=== PATIENT | female | born 1995 | race Caucasian/White ===

== ENCOUNTER 2022-03-10 15:57 | Emergency (ER) | payer OTHER ==
[2022-03-10 16:29] LABS: HEMOGLOBIN 14.4 gm/dl (12.3-15.3); RED BLOOD COUNT 4.69 M/UL (4.00-5.10)
[2022-03-10 16:49] LABS: BUN/CREATININE RATIO 19 (0-10)
== END 2022-03-10 18:18 | disposition home or self-care (01) ==
LOC: ER1 15:57
PROVIDERS: Preventive Medicine Occupational Medicine
DX: I47.1 Supraventricular tachycardia (principal); I10 Essential (primary) hypertension; F17.210 Nicotine dependence, cigarettes, uncomplicated
CPT/HCPCS: 80048; 80307; 81001; 85025; 93005; 99285